=== PATIENT | female | born 1960 | race American Indian/Alaskan Native ===

== ENCOUNTER 2018-04-30 16:03 | Inpatient (IN) | payer MEDICAID ==
[2018-04-30] MEDS ORDERED: NACL 0.9% 1000 ML 1,000 ML ONE (16:54)
[2018-04-30] MEDS ORDERED: NACL 0.9% 1000 ML 1,000 ML IV ONE (17:03)
--- NOTE | 2018-04-30 17:07 | Emergency Department Report ---
HPI - General Chief Complaint: Urogenital-Female Time Seen by Provider: 04/30/18 16:56 - HPI HPI: Room 25 The patient is 57-year-old female presenting with a chief complaint of vaginal bleeding. Per EMS the [facility] was [facility] secondary to heavy vaginal bleeding for one week. The patient is a hdez of the [facility]. Patient is nonverbal and is unable to provide further history. The patient is a hdez of the [facility] and her weekend guardian is Mr. Alex ([phone]) Location: [See above] Duration: One week Quality: Vaginal bleeding Severity: Heavy Modifying factors: [see above] Context: [see above] Mode of transportation: [not driving] ED Past Medical Hx - Past Medical History Previous Medical History?: Yes Hx CVA: Yes Hx Diabetes: Yes (Type II) Hx Deep Vein Thrombosis: Yes Hx Liver Disease: (Hepatitis) Additional medical history: dysphagia, anemia, trach - Surgical History Past Surgical History?: Yes Additional Surgical History: gastrostomy, tracheostomy - Family History Family history: no significant - Social History Smoking Status: Unknown if ever smoked ED Review of Systems ROS: Stated complaint: VAGINAL CLOTS Other details as noted in HPI Comment: Unobtainable due to pts medical conditions Physical Exam - Physical Exam Vital Signs: Vital Signs 04/30/18 16:41 Temperature 98.5 F Pulse Rate 111 H Blood Pressure 93/46 O2 Sat by Pulse 100 Oximetry Physical Exam: GENERAL: The patient is well-developed well-nourished female resting on the stretcher nonverbal, not appearing to be in acute distress. [] HEENT: Normocephalic. Atraumatic. NECK: Trachea midline CHEST/LUNGS: Clear to auscultation. There is no respiratory distress noted. HEART/CARDIOVASCULAR: Regular. There is tachycardia. There is no gallop rub or murmur. ABDOMEN: Abdomen is soft, nontender. Patient has normal bowel sounds. There is no abdominal distention. SKIN: There is no rash. There is no diaphoresis. NEURO: The patient is asleep and nonverbal. Patient occasionally opens eyes and makes eye contact MUSCULOSKELETAL: There is no evidence of acute injury. PELVIC: No blood in the vaginal vault RECTAL: Maroon-colored blood and stool. Guaiac positive ED Course Vital Signs 04/30/18 16:41 Temperature 98.5 F Pulse Rate 111 H Blood Pressure 93/46 O2 Sat by Pulse 100 Oximetry - Consultations Consultation #1: 04/30/18 18:17 Patient's we can guardian Mr. Alex called ([phone])- updated on patient' s condition and lab results. I discussed with him my recognition for blood transfusion. Mr. Alex gives consent for the patient to be transfused blood. He asked to be kept updated for any potential procedures for authorization; however, he stipulates if it is necessary on an emergency basis we may proceed prior to discussing with him 04/30/18 18:17 [place] requested to page GI 04/30/18 18:[address] Scott- states if the patient's vital signs remain stable may hold off on tagged RBC scan, however this patient becomes unstable recommends performing one tonight. Recommends initiate GoLYTELY bowel prep with 4 L of GoLYTELY starting now and finishing by 03:00 ED Medical Decision Making - Lab Data Result diagrams: 04/30/18 17:04 04/30/18 17:04 - Differential Diagnosis uterine cancer, cervical cancer, GI bleed Critical care attestation.: If time is entered above; I have spent that time in minutes in the direct care of this critically ill patient, excluding procedure time. ED Disposition Clinical Impression: GI bleed, Symptomatic anemia Disposition: OP ADMIT IP TO THIS HOSP Is pt being admited?: Yes Does the pt Need Aspirin: No Condition: Serious Time of Disposition: 18:37 (Hospitalist notified (Dr Anderson))
[2018-04-30 17:27] LABS: Hematocrit 21.2 % (30.3-42.9); Mean Corpuscular HGB Conc 33 % (30-34); Mean Corpuscular Hemoglobin 31 pg (28-32); Mean Corpuscular Volume 95 fl (79-97); Platelet Count 208 K/mm3 (140-440); Red Blood Count 2.24 M/mm3 (3.65-5.03); Red Cell Distribution Width 16.5 % (13.2-15.2)
[2018-04-30 17:35] LABS: INR 1.27 (0.87-1.13)
[2018-04-30 17:47] LABS: Albumin 2.7 g/dL (3.9-5); Calcium 8.8 mg/dL (8.4-10.2)
[2018-04-30] MEDS ORDERED: NACL 0.9% 500 ML 500 ML IV ONE ×2 (18:16→20:57)
[2018-04-30 18:30] LABS: Basophils % (Manual) 0 % (0.0-1.8); Total Cells Counted 100
[2018-04-30 18:31] LABS: Hypochromasia 2+; Platelet Estimate Consistent w Auto
[2018-04-30] MEDS ORDERED: GOLYTELY NGTUBE ONE (18:32)
[2018-04-30] MEDS ORDERED: FLUSH HEPARIN IV ONE (19:42)
--- NOTE | 2018-04-30 19:52 | History and Physical Report ---
History of Present Illness Date of examination: 04/30/18 Date of admission: 04/30/2018 Chief complaint: Chief complaint Lower GI bleed History of present illness: GILES 57-year-old female snf resident sent in for lower GI bleed. As per the snf it was vaginal bleeding but in the emergency room after the physical exam it was found to be rectal bleeding rather than vaginal bleeding. Also fever and chills Past Medical History Previous Medical History?: Yes Hx CVA: Yes Hx Diabetes: Yes (Type II) Hx Deep Vein Thrombosis: Yes Hx Liver Disease: (Hepatitis) Additional medical history: dysphagia, anemia, trach Surgical History Past Surgical History?: Yes Additional Surgical History: gastrostomy, tracheostomy - Family History Family history: no significant - Social History Smoking Status: Unknown if ever smoked Review of Systems ROS: Lower GI bleed Fever and chills Other details as noted in HPI Comment: Unobtainable due to pts medical conditions Medications and Allergies Allergies Allergy/AdvReac Type Severity Reaction Status Date / Time No Known Allergies Allergy Unverified 04/30/18 17:06 Home Medications Medication Instructions Recorded Confirmed Last Taken Type Acetaminophen [Acetaminophen ORAL 20 ml FEEDTUBE Q6H PRN 04/30/18 04/30/18 Unknown History LIQ] Aspirin [Aspir-Low] 81 mg FEEDTUBE QDAY 04/30/18 04/30/18 Unknown History Atorvastatin Calcium [Lipitor] 40 mg FEEDTUBE QHS 04/30/18 04/30/18 Unknown History Cholecalciferol (Vitamin D3) 5,000 unit FEEDTUBE QWEEK 04/30/18 04/30/18 Unknown History [Vitamin D3] Diphenoxylate HCl/Atropine 1 each PO Q6H PRN 04/30/18 04/30/18 Unknown History [Lomotil 2.5-0.025 mg Tablet] Enoxaparin Sodium 40 mg SQ QDAY 04/30/18 04/30/18 Unknown History Glucagon,Human Recombinant 1 mg IJ Q15M PRN 04/30/18 04/30/18 Unknown History [Glucagon Emergency Kit] Insulin Detemir [Levemir] 12 unit SQ BID 04/30/18 04/30/18 Unknown History Ipratropium/Albuterol Sulfate 1 ampul IH Q6HR PRN 04/30/18 04/30/18 Unknown History [DUONEB *Not for PRN Use*] Lispro Insulin [Humalog] 12 unit SQ QDAY 04/30/18 04/30/18 Unknown History Metformin HCl 500 mg FEEDTUBE BID 04/30/18 04/30/18 Unknown History Nystatin Oint [Mycostatin Oint] 1 applicatio TP BID PRN 04/30/18 04/30/18 Unknown History Ranitidine HCl [Acid Licensed Certified Orthotist] 150 mg FEEDTUBE BID 04/30/18 04/30/18 Unknown History Scopolamine [Transderm-Scop] 1 each TD Q3D 04/30/18 04/30/18 Unknown History Valproic Acid (As Sodium Salt) 10 ml FEEDTUBE BID 04/30/18 04/30/18 Unknown History [Depakene] levETIRAcetam [Keppra TAB] 1,000 mg FEEDTUBE BID 04/30/18 04/30/18 Unknown History Active Meds: Active Medications Pantoprazole Sodium 80 mg/ (Sodium Chloride) 100 mls @ 10 mls/hr IV DIRECT RONALDO Exam - Physical Exam Narrative exam: Lying in bed comfortably - Constitutional Vitals: Temp Pulse Resp BP Pulse Ox 98.5 F 92 H 18 105/64 93 04/30/18 16:41 04/30/18 18:00 04/30/18 18:00 04/30/18 18:00 04/30/18 18:00 General appearance: Present: no acute distress, well-nourished - EENT Eyes: Present: PERRL ENT: hearing intact, clear oral mucosa - Neck Neck: Present: supple, normal ROM - Respiratory Respiratory effort: normal Respiratory: bilateral: CTA - Cardiovascular Heart rate: 70 Rhythm: regular Heart Sounds: Present: S1 & S2. Absent: rub, click - Extremities Extremities: no ischemia, pulses intact, pulses symmetrical, No edema Extremity abnormal: other (contractures both feet) Peripheral Pulses: within normal limits - Abdominal General gastrointestinal: Present: soft, non-tender, non-distended, normal bowel sounds Female genitourinary: Present: normal - Rectal Rectal Exam: deferred - Integumentary Integumentary: Present: clear, warm, dry - Musculoskeletal Musculoskeletal: generalized weakness - Psychiatric Psychiatric: intact judgment & insight, depressed - Neurologic Neurologic: CNII-XII intact, moves all extremities Results - Labs CBC & Chem 7: 04/30/18 21:53 04/30/18 17:04 Labs: Laboratory Last Values WBC 12.9 K/mm3 (4.5-11.0) H 04/30/18 17:04 RBC 2.24 M/mm3 (3.65-5.03) L 04/30/18 17:04 Hgb 7.0 gm/dl (10.1-14.3) L 04/30/18 17:04 Hct 21.2 % (30.3-42.9) L 04/30/18 17:04 MCV 95 fl (79-97) 04/30/18 17:04 MCH 31 pg (28-32) 04/30/18 17:04 MCHC 33 % (30-34) 04/30/18 17:04 RDW 16.5 % (13.2-15.2) H 04/30/18 17:04 Plt Count 208 K/mm3 (140-440) 04/30/18 17:04 Lymph # Bilingual Trainer 04/30/18 17:04 Add Manual Diff Complete 04/30/18 17:04 Total Counted 100 04/30/18 17:04 Seg Neuts % (Manual) 44.0 % (40.0-70.0) 04/30/18 17:04 Band Neutrophils % 0 % 04/30/18 17:04 Lymphocytes % (Manual) 48.0 % (13.4-35.0) H 04/30/18 17:04 Reactive Lymphs % (Man) 2.0 % 04/30/18 17:04 Monocytes % (Manual) 5.0 % (0.0-7.3) 04/30/18 17:04 Eosinophils % (Manual) 1.0 % (0.0-4.3) 04/30/18 17:04 Basophils % (Manual) 0 % (0.0-1.8) 04/30/18 17:04 Metamyelocytes % 0 % 04/30/18 17:04 Myelocytes % 0 % 04/30/18 17:04 Promyelocytes % 0 % 04/30/18 17:04 Blast Cells % 0 % 04/30/18 17:04 Nucleated RBC % Not Reportable 04/30/18 17:04 Seg Neutrophils # Man 5.7 K/mm3 (1.8-7.7) 04/30/18 17:04 Band Neutrophils # 0.0 K/mm3 04/30/18 17:04 Lymphocytes # (Manual) 6.2 K/mm3 (1.2-5.4) H 04/30/18 17:04 Abs React Lymphs (Man) 0.3 K/mm3 04/30/18 17:04 Monocytes # (Manual) 0.6 K/mm3 (0.0-0.8) 04/30/18 17:04 Eosinophils # (Manual) 0.1 K/mm3 (0.0-0.4) 04/30/18 17:04 Basophils # (Manual) 0.0 K/mm3 (0.0-0.1) 04/30/18 17:04 Metamyelocytes # 0.0 K/mm3 04/30/18 17:04 Myelocytes # 0.0 K/mm3 04/30/18 17:04 Promyelocytes # 0.0 K/mm3 04/30/18 17:04 Blast Cells # 0.0 K/mm3 04/30/18 17:04 WBC Morphology Not Reportable 04/30/18 17:04 Hypersegmented Neuts Not Reportable 04/30/18 17:04 Hyposegmented Neuts Not Reportable 04/30/18 17:04 Hypogranular Neuts Not Reportable 04/30/18 17:04 Smudge Cells Not Reportable 04/30/18 17:04 Toxic Granulation Not Reportable 04/30/18 17:04 Toxic Vacuolation Not Reportable 04/30/18 17:04 Dohle Bodies Not Reportable 04/30/18 17:04 Pelger-Huet Anomaly Not Reportable 04/30/18 17:04 Kanchan Rods Not Reportable 04/30/18 17:04 Platelet Estimate Consistent w auto 04/30/18 17:04 Clumped Platelets Not Reportable 04/30/18 17:04 Plt Clumps, EDTA Not Reportable 04/30/18 17:04 Large Platelets Not Reportable 04/30/18 17:04 Giant Platelets Not Reportable 04/30/18 17:04 Platelet Satelliting Not Reportable 04/30/18 17:04 Plt Morphology Comment Not Reportable 04/30/18 17:04 RBC Morphology Not Reportable 04/30/18 17:04 Dimorphic RBCs Not Reportable 04/30/18 17:04 Polychromasia Not Reportable 04/30/18 17:04 Hypochromasia 2+ 04/30/18 17:04 Poikilocytosis Not Reportable 04/30/18 17:04 Anisocytosis Not Reportable 04/30/18 17:04 Microcytosis Not Reportable 04/30/18 17:04 Macrocytosis Not Reportable 04/30/18 17:04 Spherocytes Not Reportable 04/30/18 17:04 Pappenheimer Bodies Not Reportable 04/30/18 17:04 Sickle Cells Not Reportable 04/30/18 17:04 Target Cells Not Reportable 04/30/18 17:04 Tear Drop Cells Not Reportable 04/30/18 17:04 Ovalocytes Not Reportable 04/30/18 17:04 Helmet Cells Not Reportable 04/30/18 17:04 Li-[place]apstone Bodies Not Reportable 04/30/18 17:04 [place] Rings Not Reportable 04/30/18 17:04 Effie Cells Not Reportable 04/30/18 17:04 Bite Cells Not Reportable 04/30/18 17:04 Crenated Cell Not Reportable 04/30/18 17:04 Elliptocytes Not Reportable 04/30/18 17:04 Acanthocytes (Spur) Not Reportable 04/30/18 17:04 Rouleaux Not Reportable 04/30/18 17:04 Hemoglobin C Crystals Not Reportable 04/30/18 17:04 Schistocytes Not Reportable 04/30/18 17:04 Malaria parasites Not Reportable 04/30/18 17:04 Franklyn Bodies Not Reportable 04/30/18 17:04 Hem Pathologist Commnt No 04/30/18 17:04 PT 16.6 Sec. (12.2-14.9) H 04/30/18 17:04 INR 1.27 (0.87-1.13) H 04/30/18 17:04 APTT 50.0 Sec. (24.2-36.6) H 04/30/18 17:04 Sodium 136 mmol/L (137-145) L 04/30/18 17:04 Potassium 5.2 mmol/L (3.6-5.0) H 04/30/18 17:04 Chloride 99.7 mmol/L (98-107) 04/30/18 17:04 Carbon Dioxide 20 mmol/L (22-30) L 04/30/18 17:04 Anion Gap 22 mmol/L 04/30/18 17:04 BUN 37 mg/dL (7-17) H 04/30/18 17:04 Creatinine 1.2 mg/dL (0.7-1.2) 04/30/18 17:04 Estimated GFR 46 ml/min 04/30/18 17:04 BUN/Creatinine Ratio 31 % 04/30/18 17:04 Glucose 193 mg/dL (65-100) H 04/30/18 17:04 Calcium 8.8 mg/dL (8.4-10.2) 04/30/18 17:04 Total Bilirubin 0.50 mg/dL (0.1-1.2) 04/30/18 17:04 AST 58 units/L (5-40) H 04/30/18 17:04 ALT 31 units/L (7-56) 04/30/18 17:04 Alkaline Phosphatase 54 units/L (35-129) 04/30/18 17:04 Total Protein 9.0 g/dL (6.3-8.2) H 04/30/18 17:04 Albumin 2.7 g/dL (3.9-5) L 04/30/18 17:04 Albumin/Globulin Ratio 0.4 % 04/30/18 17:04 Blood Type O POSITIVE 04/30/18 17:04 Antibody Screen Negative 04/30/18 17:04 Crossmatch See Detail 04/30/18 17:04 - Imaging and Cardiology EKG: report reviewed Assessment and Plan Advance Directives: Yes (hospice) VTE prophylaxis?: Chemical Plan of care discussed with patient/family: Yes - Patient Problems (1) Lower GI bleed Current Visit: Yes Status: Acute Plan to address problem: Transfuse 1 unit Of packed red blood cells GI consult Possible diverticulosis Protonix initiated (2) Acute blood loss anemia Current Visit: Yes Status: Acute Plan to address problem: Transfuse 1 unit of packed red blood cells (3) Type 2 diabetes mellitus Current Visit: Yes Status: Chronic Qualifiers: Diabetes mellitus custodial insulin use: unspecified lobsterman insulin use status Plan to address problem: Coverage for now (4) History of cerebrovascular accident Current Visit: Yes Status: Chronic Plan to address problem: Supportive care (5) Fever Current Visit: Yes Status: Acute Qualifiers: Encounter type: initial encounter Plan to address problem: Urine analysis is ordered Not yet available IV Rocephin started empirically (6) DVT prophylaxis Current Visit: Yes Status: Acute Plan to address problem: On heparin
[2018-04-30] MEDS ORDERED: PERCOCET 5/325 PO PRN (19:53)
[2018-04-30] MEDS ORDERED: TYLENOL PO PRN (19:53)
[2018-04-30] MEDS ORDERED: ZOFRAN IV PRN (19:53)
[2018-04-30] MEDS ORDERED: MORPHINE IV PRN (19:53)
[2018-04-30] MEDS ORDERED: SODIUM CHLORIDE FLUSH SYRINGE 10 ML IV PRN (19:53)
[2018-04-30] MEDS ORDERED: PROTONIX 80 MG in NACL 0.9% 100 ML IV SCH (20:00)
[2018-04-30] MEDS ORDERED: D5NS 1,000 ML IV SCH (20:00)
[2018-04-30] MEDS ORDERED: PEPCID IV SCH (22:00)
[2018-04-30] MEDS ORDERED: cefTRIAXone 2 GM in NACL 0.9% 20 ML IV SCH (22:00)
--- NOTE | 2018-04-30 22:01 | Nuclear Medicine Report ---
FINAL REPORT EXAM: NM GI BLEEDING SCAN HISTORY: gi bleed TECHNIQUE: Nuclear medicine GI bleeding scan performed using approximately 20 mCi of technetium 99m tagged RBCs. Planar images of the abdomen obtained for approximately one hour. PRIORS: None. FINDINGS: Normal, physiologic radionuclide activity noted throughout the abdomen. No apparent, ectopic or migratory radionuclide activity seen within the bowel. IMPRESSION: 1. No acute findings.
[2018-04-30] MEDS: SENOKOT PO SCH (22:05)
[2018-04-30 22:27] LABS: Hematocrit 23.2 % (30.3-42.9); Hemoglobin 7.8 gm/dl (10.1-14.3)
[2018-04-30] MEDS: SODIUM CHLORIDE FLUSH SYRINGE 10 ML IV SCH (23:36)
[2018-05-01 06:53] LABS: Bilirubin,Urine NEG (Negative); Blood,Urine LG (Negative); Color,Urine Amber (Yellow); Urobilinogen,Urine < 2.0 mg/dL (<2.0)
[2018-05-01 06:54] LABS: WBC,Urine > 182.0 /HPF (0.0-6.0)
[2018-05-01] MEDS ORDERED: NACL 0.9% 1000 ML 1,000 ML ONE (07:04)
[2018-05-01] MEDS ORDERED: WATER FOR IRRIG STERILE IR ONE (07:05)
[2018-05-01] MEDS ORDERED: WATER FOR IRRIG STERILE ONE (07:05)
[2018-05-01] MEDS ORDERED: DIPRIVAN 10 MG/ML IV ONE ×2 (07:51)
--- NOTE | 2018-05-01 07:52 | Gastroenterology Consultation ---
History of Present Illness - Reason for Consult Consult date: 05/01/18 GI bleed Requesting physician: SAMI ORTIZ - History of Present Illness Ms Mckinley is a 57 yo aaf who [facility] from [facility] with [facility] bleed. Patient non-verbal and history gathered from chart review and discussion with staff. Patient with chronic trach and peg tube. She has a legal guardian who gives consent for patient. She presented with what was initially felt to be vaginal bleeding but was found to have dark/maroon stool per rectum on exam. She was initially hypotensive/tachycardic on arrival which improved with IVF's. She was found to have severe anemia on admission with unknown baseline. She received a unit of blood with appropriate response in H/H. She had a tagged RBC scan following admission which was negative for active bleeding. Past History Past Medical History: other (non verbal, ?h/o cva) Past Surgical History: Other (+ trach and peg tube) Social history: other (unable to obtain) Family history: other (unable to obtain) Medications and Allergies Allergies Allergy/AdvReac Type Severity Reaction Status Date / Time No Known Allergies Allergy Unverified 04/30/18 17:06 Home Medications Medication Instructions Recorded Confirmed Last Taken Type Acetaminophen [Acetaminophen ORAL 20 ml FEEDTUBE Q6H PRN 04/30/18 04/30/18 Unknown History LIQ] Aspirin [Aspir-Low] 81 mg FEEDTUBE QDAY 04/30/18 04/30/18 Unknown History Atorvastatin Calcium [Lipitor] 40 mg FEEDTUBE QHS 04/30/18 04/30/18 Unknown History Cholecalciferol (Vitamin D3) 5,000 unit FEEDTUBE QWEEK 04/30/18 04/30/18 Unknown History [Vitamin D3] Diphenoxylate HCl/Atropine 1 each PO Q6H PRN 04/30/18 04/30/18 Unknown History [Lomotil 2.5-0.025 mg Tablet] Enoxaparin Sodium 40 mg SQ QDAY 04/30/18 04/30/18 Unknown History Glucagon,Human Recombinant 1 mg IJ Q15M PRN 04/30/18 04/30/18 Unknown History [Glucagon Emergency Kit] Insulin Detemir [Levemir] 12 unit SQ BID 04/30/18 04/30/18 Unknown History Ipratropium/Albuterol Sulfate 1 ampul IH Q6HR PRN 04/30/18 04/30/18 Unknown History [DUONEB *Not for PRN Use*] Lispro Insulin [Humalog] 12 unit SQ QDAY 04/30/18 04/30/18 Unknown History Metformin HCl 500 mg FEEDTUBE BID 04/30/18 04/30/18 Unknown History Nystatin Oint [Mycostatin Oint] 1 applicatio TP BID PRN 04/30/18 04/30/18 Unknown History Ranitidine HCl [Acid [facility]] 150 mg FEEDTUBE BID 04/30/18 04/30/18 Unknown History Scopolamine [Transderm-Scop] 1 each TD Q3D 04/30/18 04/30/18 Unknown History Valproic Acid (As Sodium Salt) 10 ml FEEDTUBE BID 04/30/18 04/30/18 Unknown History [Depakene] levETIRAcetam [Keppra TAB] 1,000 mg FEEDTUBE BID 04/30/18 04/30/18 Unknown History Active Meds: Active Medications Acetaminophen (Tylenol) 650 mg PO Q4H PRN PRN Reason: Pain MILD(1-3)/Fever >100.5/GAMBINO Pantoprazole Sodium 80 mg/ (Sodium Chloride) 100 mls @ 10 mls/hr IV DIRECT [facility] Last Admin: 05/01/18 01:00 Dose: 8 mg/hr, 10 mls/hr Dextrose/Sodium Chloride (D5ns) 1,000 mls @ 75 mls/hr IV DIRECT [facility] Last Admin: 04/30/18 23:38 Dose: 75 mls/hr Ceftriaxone Sodium 2 gm/ (Sodium Chloride) 20 mls @ 2 mls/min IV Q24HR@2200 [facility] Last Admin: 04/30/18 23:35 Dose: 2 mls/min Morphine Sulfate (Morphine) 2 mg IV Q4H PRN PRN Reason: Pain, Moderate (4-6) Ondansetron HCl (Zofran) 4 mg IV Q8H PRN PRN Reason: Nausea And Vomiting Oxycodone/Acetaminophen (Percocet 5/325) 1 tab PO Q6H PRN PRN Reason: Pain, Moderate (4-6) Senna (Senokot) 8.6 mg PO Q12HR [facility] Last Admin: 04/30/18 22:05 Dose: 8.6 mg Sodium Chloride (Sodium Chloride Flush Syringe 10 Ml) 10 ml IV BID [facility] Last Admin: 04/30/18 23:36 Dose: 10 ml Sodium Chloride (Sodium Chloride Flush Syringe 10 Ml) 10 ml IV PRN PRN PRN Reason: LINE FLUSH Review of Systems - Review of Systems ROS unobtainable: due to mental status Exam - Constitutional Vital Signs: Temp Pulse Resp BP Pulse Ox 97.8 F 77 18 120/72 98 05/01/18 04:30 05/01/18 04:30 05/01/18 04:30 05/01/18 04:30 05/01/18 04:30 General appearance: no acute distress, other (non verbal) - Neck Neck: other (+ trach) - Respiratory Respiratory effort: normal Respiratory: bilateral: diminished - Cardiovascular Rhythm: regular Heart Sounds: Present: S1 & S2 - Gastrointestinal General gastrointestinal: Present: soft, non-tender, non-distended, other (+ peg tube) - Integumentary Integumentary: Present: clear, warm - Neurologic Neurological: other (orientec x 0) - Labs CBC & Chem 7: 04/30/18 21:53 04/30/18 17:04 Lab Results: Laboratory Results - last 24 hr 04/30/18 04/30/18 04/30/18 06:10 17:04 17:04 WBC 12.9 H RBC 2.24 L Hgb 7.0 L Hct 21.2 L MCV 95 MCH 31 MCHC 33 RDW 16.5 H Plt Count 208 Lymph # Stable Manager Add Manual Diff Complete Total Counted 100 Seg Neuts % (Manual) 44.0 Band Neutrophils % 0 Lymphocytes % (Manual) 48.0 H Reactive Lymphs % (Man) 2.0 Monocytes % (Manual) 5.0 Eosinophils % (Manual) 1.0 Basophils % (Manual) 0 Metamyelocytes % 0 Myelocytes % 0 Promyelocytes % 0 Blast Cells % 0 Nucleated RBC % Not Reportable Seg Neutrophils # Man 5.7 Band Neutrophils # 0.0 Lymphocytes # (Manual) 6.2 H Abs React Lymphs (Man) 0.3 Monocytes # (Manual) 0.6 Eosinophils # (Manual) 0.1 Basophils # (Manual) 0.0 Metamyelocytes # 0.0 Myelocytes # 0.0 Promyelocytes # 0.0 Blast Cells # 0.0 WBC Morphology Not Reportable Hypersegmented Neuts Not Reportable Hyposegmented Neuts Not Reportable Hypogranular Neuts Not Reportable Smudge Cells Not Reportable Toxic Granulation Not Reportable Toxic Vacuolation Not Reportable Dohle Bodies Not Reportable Pelger-Huet Anomaly Not Reportable Kanchan Rods Not Reportable Platelet Estimate Consistent w auto Clumped Platelets Not Reportable Plt Clumps, EDTA Not Reportable Large Platelets Not Reportable Giant Platelets Not Reportable Platelet Satelliting Not Reportable Plt Morphology Comment Not Reportable RBC Morphology Not Reportable Dimorphic RBCs Not Reportable Polychromasia Not Reportable Hypochromasia 2+ Poikilocytosis Not Reportable Anisocytosis Not Reportable Microcytosis Not Reportable Macrocytosis Not Reportable Spherocytes Not Reportable Pappenheimer Bodies Not Reportable Sickle Cells Not Reportable Target Cells Not Reportable Tear Drop Cells Not Reportable Ovalocytes Not Reportable Helmet Cells Not Reportable [place] Bodies Not Reportable Jacobson Rings Not Reportable Anita Cells Not Reportable Bite Cells Not Reportable Crenated Cell Not Reportable Elliptocytes Not Reportable Acanthocytes (Spur) Not Reportable Rouleaux Not Reportable Hemoglobin C Crystals Not Reportable Schistocytes Not Reportable Malaria parasites Not Reportable Franklyn Bodies Not Reportable Hem Pathologist Commnt No PT 16.6 H INR 1.27 H APTT 50.0 H Sodium Potassium Chloride Carbon Dioxide Anion Gap BUN Creatinine Estimated GFR BUN/Creatinine Ratio Glucose POC Glucose Calcium Total Bilirubin AST ALT Alkaline Phosphatase Total Protein Albumin Albumin/Globulin Ratio Urine Color Josy Urine Turbidity Clear Urine pH 5.0 Ur Specific Wing 1.018 Urine Protein 30 mg/dl Urine Glucose (UA) Neg Urine Ketones Tr Urine Blood Lg Urine Nitrite Neg Urine Bilirubin Neg Urine Urobilinogen < 2.0 Ur Leukocyte Esterase Lg Urine WBC (Auto) > 182.0 H Urine RBC (Auto) 42.0 U Epithel Cells (Auto) 1.0 Urine WBC Clumps 3+ Blood Type Antibody Screen Crossmatch 04/30/18 04/30/18 04/30/18 17:04 17:04 21:53 WBC RBC Hgb 7.8 L Hct 23.2 L MCV MCH MCHC RDW Plt Count Lymph # Add Manual Diff Total Counted Seg Neuts % (Manual) Band Neutrophils % Lymphocytes % (Manual) Reactive Lymphs % (Man) Monocytes % (Manual) Eosinophils % (Manual) Basophils % (Manual) Metamyelocytes % Myelocytes % Promyelocytes % Blast Cells % Nucleated RBC % Seg Neutrophils # Man Band Neutrophils # Lymphocytes # (Manual) Abs React Lymphs (Man) Monocytes # (Manual) Eosinophils # (Manual) Basophils # (Manual) Metamyelocytes # Myelocytes # Promyelocytes # Blast Cells # WBC Morphology Hypersegmented Neuts Hyposegmented Neuts Hypogranular Neuts Smudge Cells Toxic Granulation Toxic Vacuolation Dohle Bodies Pelger-Huet Anomaly Kanchan Rods Platelet Estimate Clumped Platelets Plt Clumps, EDTA Large Platelets Giant Platelets Platelet Satelliting Plt Morphology Comment RBC Morphology Dimorphic RBCs Polychromasia Hypochromasia Poikilocytosis Anisocytosis Microcytosis Macrocytosis Spherocytes Pappenheimer Bodies Sickle Cells Target Cells Tear Drop Cells Ovalocytes Helmet Cells Li-[place] Bodies Jacobson Rings Effie Cells Bite Cells Crenated Cell Elliptocytes Acanthocytes (Spur) Rouleaux Hemoglobin C Crystals Schistocytes Malaria parasites Franklyn Bodies Hem Pathologist Commnt PT INR APTT Sodium 136 L Potassium 5.2 H Chloride 99.7 Carbon Dioxide 20 L Anion Gap 22 BUN 37 H Creatinine 1.2 Estimated GFR 46 BUN/Creatinine Ratio 31 Glucose 193 H POC Glucose Calcium 8.8 Total Bilirubin 0.50 AST 58 H ALT 31 Alkaline Phosphatase 54 Total Protein 9.0 H Albumin 2.7 L Albumin/Globulin Ratio 0.4 Urine Color Urine Turbidity Urine pH Ur Specific Wing Urine Protein Urine Glucose (UA) Urine Ketones Urine Blood Urine Nitrite Urine Bilirubin Urine Urobilinogen Ur Leukocyte Esterase Urine WBC (Auto) Urine RBC (Auto) U Epithel Cells (Auto) Urine WBC Clumps Blood Type O POSITIVE Antibody Screen Negative Crossmatch See Detail 04/30/18 05/01/18 23:09 05:57 WBC RBC Hgb Hct MCV MCH MCHC RDW Plt Count Lymph # Add Manual Diff Total Counted Seg Neuts % (Manual) Band Neutrophils % Lymphocytes % (Manual) Reactive Lymphs % (Man) Monocytes % (Manual) Eosinophils % (Manual) Basophils % (Manual) Metamyelocytes % Myelocytes % Promyelocytes % Blast Cells % Nucleated RBC % Seg Neutrophils # Man Band Neutrophils # Lymphocytes # (Manual) Abs React Lymphs (Man) Monocytes # (Manual) Eosinophils # (Manual) Basophils # (Manual) Metamyelocytes # Myelocytes # Promyelocytes # Blast Cells # WBC Morphology Hypersegmented Neuts Hyposegmented Neuts Hypogranular Neuts Smudge Cells Toxic Granulation Toxic Vacuolation Dohle Bodies Pelger-Huet Anomaly Kanchan Rods Platelet Estimate Clumped Platelets Plt Clumps, EDTA Large Platelets Giant Platelets Platelet Satelliting Plt Morphology Comment RBC Morphology Dimorphic RBCs Polychromasia Hypochromasia Poikilocytosis Anisocytosis Microcytosis Macrocytosis Spherocytes Pappenheimer Bodies Sickle Cells Target Cells Tear Drop Cells Ovalocytes Helmet Cells [place] Bodies Jacobson Rings Effie Cells Bite Cells Crenated Cell Elliptocytes Acanthocytes (Spur) Rouleaux Hemoglobin C Crystals Schistocytes Malaria parasites Franklyn Bodies Hem Pathologist Commnt PT INR APTT Sodium Potassium Chloride Carbon Dioxide Anion Gap BUN Creatinine Estimated GFR BUN/Creatinine Ratio Glucose POC Glucose 179 H 118 H Calcium Total Bilirubin AST ALT Alkaline Phosphatase Total Protein Albumin Albumin/Globulin Ratio Urine Color Urine Turbidity Urine pH Ur Specific Wing Urine Protein Urine Glucose (UA) Urine Ketones Urine Blood Urine Nitrite Urine Bilirubin Urine Urobilinogen Ur Leukocyte Esterase Urine WBC (Auto) Urine RBC (Auto) U Epithel Cells (Auto) Urine WBC Clumps Blood Type Antibody Screen Crossmatch - Imaging Bleeding Scan: report reviewed Assessment and Plan 1. GI bleed 2. h/o CVA 3. Anemia 4. ANTOLIN -vitals stable, will plan for egd/colonoscopy. further management based on findings
--- NOTE | 2018-05-01 08:41 | Post Operative Note ---
Pre-op diagnosis: GI bleed Post-op diagnosis: same (diverticulosis, scattered erythematous colon mucosa, internal hemorrhoids; gastritis) Findings: Colonoscopy: scattered/patchy erythematous mucosa throughout colon, biopsied. diverticulosis, internal hemorrhoids. no blood seen in the colon EGD: mild gastritis, internal bumper of peg tube, no source of bleeding identified. Procedure: 1. Colonoscopy with biopsies 2. EGD Anesthesia: MAC Surgeon: PRATIK LEE Estimated blood loss: minimal Pathology: list (Jar A - colon biopsies) Specimen disposition: to lab Condition: stable Disposition: floor
--- NOTE | 2018-05-01 08:46 | Operative Report ---
Operative Report Operative Report: Colonoscopy Procedure Note with Biopsies Date of procedure: 05/01/2018 Endoscopist: Jaylen Scott Pre-op diagnosis: GI bleed Post-op diagnosis: diverticulosis, mild patchy erythematous mucosa, internal hemorrhoids Anesthesia: MAC Complications: No immediate complications Estimated blood loss: minimal Procedure: After consent was obtained from the patient's guardian over the phone (Liyah Romo, ), the patient was placed in the left lateral decubitus position. The fujinon colonoscope was inserted into the patient's rectum under direct vision, and advanced to the cecum without difficulty. The patient tolerated the procedure well. The views of the mucosa were good. The quality of prep was good. The patient's vital signs were monitored continuously throughout the procedure. Findings: There were multiple scattered diverticula throughout the colon. There were patchy areas of erythematous mucosa throughout the colon of unclear significance. Biopsies were obtained. Internal hemorrhoids were visualized on retroflexion view. There was no blood seen throughout the colon during the procedure Impression: 1. Diverticulosis 2. Patchy erythematous mucosa of unclear significance (? colitis vs prep- artifact vs ischemia although less likely given pattern). Biopsies obtained. 3. Internal hemorrhoids Recommendations: -follow-up pathology -endoscopy to follow
--- NOTE | 2018-05-01 08:49 | Operative Report ---
Operative Report Operative Report: Esophagogastroduodenoscopy Procedure Note Date of procedure: 05/01/2018 Endoscopist: Jaylen Scott Pre-op diagnosis: GI bleed Post-op diagnosis: mild gastritis, otherwise no significant findings Anesthesia: MAC Complications: No immediate complications Estimated blood loss: none Procedure: After consent was obtained from the patient's legal guardian ( details in colonoscopy report), the patient was placed in the left lateral decubitus position. The fujinon endoscope was inserted into the patient's mouth under direct vision, and advanced to the 2nd portion of duodenum without difficulty. The patient tolerated the procedure well. The views of the mucosa were good. Patient's vital signs were monitored continuously throughout the procedure. Findings: There was a non-obstructing, widely patent B ring in the lower third of the esophagus. There was mild erythematous mucosa in the gastric body. The internal bumper of peg tube was visualized without abnormalities. Otherwise, the stomach appeared normal. The duodenum appeared normal. Bile was seen throughout the visualized portion of the duodenum. Impression: 1. Mild gastritis otherwise unremarkable EGD. No high risk bleeding lesions or source of bleeding identified during procedure. Recommendations: -okay to restart tube feeds per nutrition recommendations -trend H/H -if no further bleeding, okay to be discharged from GI stand point (source of bleeding likely diverticular vs hemorrhoids, difficult to say given unknown baseline for patient's H/H). regardless, there was no blood seen during the procedures or signs of active/recent bleeding.
--- NOTE | 2018-05-01 09:29 | Anesthesia Consultation ---
Anesthesia Consult and Med Hx Date of service: 05/01/18 - Airway Anesthetic Teeth Evaluation: Poor (multiple missing, brittle), Chipped Mental/Hyoid Distance: Adequate Mallampati Class: Class III Intubation Access Assessment: Possibly Difficult - Pulmonary Exam CTA: Yes - Cardiac Exam Cardiac Exam: RRR - Pre-Operative Health Status ASA Pre-Surgery Classification: ASA4 Proposed Anesthetic Plan: MAC - Pre-Anesthesia Comment Pre-Anesthesia Comments: Trach, eyes open. right arm/leg flaccid. moves left hand, squeezes. unable to follow purposeful commands - Pulmonary Hx Respiratory Symptoms: Yes (Trach airway ) - Central Nervous System CVA: Yes - Endocrine Hx Liver Disease: Yes (HEPATITIS) Hx Non-Insulin Dependent Diabetes: Yes - Hematic Hx Anemia: Yes
[2018-05-01 09:30] VITALS: BP 131/82
--- NOTE | 2018-05-01 09:31 | Anesthesia Day of Surgery ---
Anesthesia Day of Surgery - Day of Surgery Patient Examined: Yes Patient H&P Reviewed: Yes Patient is NPO: Yes
[2018-05-01] MEDS ORDERED: NACL 0.9% 1000 ML 1,000 ML IV SCH (10:00)
[2018-05-01 10:46] LABS: Basophils % (Auto) 0.5 % (0.0-1.8); Eosinophils # (Auto) 0.1 K/mm3 (0.0-0.4); Hemoglobin 8.7 gm/dl (10.1-14.3); Lymphocytes # (Auto) 3.4 K/mm3 (1.2-5.4); Mean Corpuscular HGB Conc 33 % (30-34); Mean Corpuscular Hemoglobin 30 pg (28-32); Mean Corpuscular Volume 90 fl (79-97); Monocytes # (Auto) 0.5 K/mm3 (0.0-0.8); Platelet Count 107 K/mm3 (140-440); Red Blood Count 2.89 M/mm3 (3.65-5.03)
--- NOTE | 2018-05-01 11:06 | Post Anesthesia Evaluation ---
- Post Anesthesia Evaluation Patient Participated: Yes Airway Patent: Yes Stable Respiratory Function: Yes Nausea/Vomiting: No Temp > 96.8F: Yes Pain Manageable: Yes Adequeate Hydration: Yes Anesthesia Complications: No
[2018-05-01 11:07] LABS: Albumin 2.6 g/dL (3.9-5); Calcium 8.3 mg/dL (8.4-10.2)
[2018-05-01] MEDS ORDERED: HumaLOG SUB-Q SCH (11:30)
--- NOTE | 2018-05-01 11:35 | Discharge Summary ---
<MARY ANN SINGLETON - Last Filed: 05/01/18 12:11> Providers - Providers Date of Admission: 04/30/18 19:53 Date of discharge: 05/01/18 Attending physician: SCOTT BUSTOS MD 04/30/18 19:53 Consult to Physician [CONS] Routine Comment: Consulting Provider: PRATIK LEE Physician Instructions: Reason For Exam: gi bLEED 05/01/18 10:15 Consult to Dietitian/Nutrition [CONS] Routine Physician Instructions: Reason For Exam: Reason for Consult: Write/Manage Tube Feeding Primary care physician: OFFSHORE DIVER Hospitalization Condition: Stable Hospital course: Patient nonverbal, HPI obtained from admitting physician's H&P 57-year-old female assisted resident sent in for lower GI bleed. As per the assisted it was vaginal bleeding but in the emergency room after the physical exam it was found to be rectal bleeding rather than vaginal bleeding. Also fever and chills. Patient was transfused with 1 unit of PRBC, Protonix was initiated and Osteopathic Resident was consulted. Patient underwent EGD and was found to have mild gastritis and otherwise unremarkable EGD. Patient was okay to be discharge from GI standpoint as there was no further bleeding. Patient is clinically and hemodynamically stable for discharge back to SNF. Discharge diagnoses Lower GI bleed Acute blood loss anemia Type 2 diabetes History of CVA Fever Gastritis Disposition: DC/TX-03 SNF [facility] Time spent for discharge: 32 minutes Core Measure Documentation - Palliative Care Palliative Care/ Comfort Measures: Not Applicable - Core Measures Any of the following diagnoses?: none Exam - Physical Exam Narrative exam: General appearance: Present: no acute distress, well-nourished - EENT Eyes: Present: PERRL ENT: hearing intact, clear oral mucosa - Neck Neck: Present: supple, normal ROM, tracheostomy - Respiratory Respiratory effort: normal Respiratory: bilateral: CTA - Cardiovascular Rhythm: regular Heart Sounds: Present: S1 & S2. Absent: rub, click - Extremities Extremities: no ischemia, pulses intact, pulses symmetrical, No edema Extremity abnormal: other (contractures both feet) Peripheral Pulses: within normal limits - Abdominal General gastrointestinal: Present: soft, non-tender, non-distended, normal bowel sounds Female genitourinary: Present: normal - Rectal Rectal Exam: deferred - Integumentary Integumentary: Present: clear, warm, dry - Musculoskeletal Musculoskeletal: generalized weakness - Psychiatric Psychiatric: intact judgment & insight, depressed - Neurologic Neurologic: CNII-XII intact, moves all extremities - Constitutional Vitals: Temp Pulse Resp BP Pulse Ox 97.4 F L 75 12 131/82 100 05/01/18 07:30 05/01/18 09:04 05/01/18 09:04 05/01/18 09:04 05/01/18 09:04 Plan Follow up with: PRIMARY CAREMD [Primary Care Provider] - 7 Days Prescriptions: Ferrous Sulfate 300 mg FEEDTUBE QDAY #30 oralsyr <SCOTT BUSTOS - Last Filed: 05/01/18 17:19> Providers - Providers Date of Admission: 04/30/18 19:53 Attending physician: SCOTT BUSTOS MD 04/30/18 19:53 Consult to Physician [CONS] Routine Comment: Consulting Provider: PRATIK LEE Physician Instructions: Reason For Exam: gi bLEED 05/01/18 10:15 Consult to Dietitian/Nutrition [CONS] Routine Physician Instructions: Reason For Exam: Reason for Consult: Write/Manage Tube Feeding Primary care physician: OFFSHORE DIVER Hospitalization Reason for admission: GI bleeding Pertinent studies: EGD/Colonoscopy Hospital course: There is mild hypernatremia and will be corrected with tube feeding. - Discharge Diagnoses (1) Acute blood loss anemia Status: Acute (2) GI bleed Status: Acute (3) Lower GI bleed Status: Acute (4) History of cerebrovascular accident Status: Chronic (5) Type 2 diabetes mellitus Status: Chronic Qualifiers: Diabetes mellitus measurement department chief clerk insulin use: unspecified measurement department chief clerk insulin use status Core Measure Documentation - Palliative Care Palliative Care/ Comfort Measures: Not Applicable - Core Measures Any of the following diagnoses?: history only (CVA) Exam - Physical Exam Narrative exam: Patient is bed-ridden and immobile. Patient is non communicative but understood simple commands. - Constitutional Vitals: Temp Pulse Resp BP Pulse Ox 97.4 F L 75 12 131/82 100 05/01/18 07:30 05/01/18 09:04 05/01/18 09:04 05/01/18 09:04 05/01/18 09:04 Plan Activity: other (bed ridden) Weight Bearing Status: Non-Weight Bearing Diet: diabetic, per dietitian instruction
[2018-05-01] MEDS: SENOKOT PO SCH (11:47)
[2018-05-01] MEDS: SODIUM CHLORIDE FLUSH SYRINGE 10 ML IV SCH (11:47)
[2018-05-01] MEDS ORDERED: D5/0.45NS 1,000 ML IV SCH (12:00)
[2018-05-01] MEDS ORDERED: SODIUM BICARBONATE FEEDTUBE PRN (13:12)
[2018-05-01] MEDS ORDERED: PANCREAZE DR 10,500 UNIT FEEDTUBE PRN (13:12)
[2018-05-01] MEDS ORDERED: SIMPLE SYRUP FEEDTUBE PRN ×2 (13:12)
--- NOTE | 2018-05-01 16:55 | Query- Nutrition ---
Lani Ovalles____Kulwinder Date:__05/01/18 Web Press Operator/CDS:__abeba Phone#:___[phone] Exercise your independent professional judgment when responding to query. Questions asked do not imply a particular answer is desired or expected. We greatly appreciate your clarification on this issue. Clinical Documentation States: 57-year-old female halfway resident sent in for lower GI bleed. As per the halfway it was vaginal bleeding but in the emergency room after the physical exam it was found to be rectal bleeding rather than vaginal bleeding. Also fever and chills. Taken from discharge summary () on 04/30/18. Discharge diagnoses Lower GI bleed Acute blood loss anemia Type 2 diabetes History of CVA Fever Gastritis Clinical Findings Show: 04/30/18 05/01/18 Albumin 2.7 L 2.6 L Please select the most appropriate option 3 [] Mild Malnutrition [] Mild - Moderate Malnutrition [x] Moderate - Severe Malnutrition [] Severe Malnutrition Serum Albumin 2.8 to 3.4 g/dl or Pre-albumin 5 to 17 mg/dl1,2 Inadequate nutritional intake1,2,3,4 NPO > 5 days Weight loss: 5% in 1 month or 7.5% in 3 months or 10% in 6 months1, 3,4 BMI 16 to 18.4 or Weight <90% of ideal body weight1,2,3,4 Serum Albumin < 2.8 g/ dl1,2 Lymphocytes < 1500/ L2 Inadequate nutritional intake3, high stress e.g. major trauma, sepsis,pancreatitis, taylor etc. Decubitus ulcers1,2, , skin breakdown2, easy hair pluckability2 Weight <80% standard for height2 Triceps skin fold <3 mm2 Mid-arm muscle circumference <15 cm2 Creatinine-height index <60% standard2 [ ] Cachexia [ ] Emaciated w/Malnutrition [ ] Other: [ ] Unable to determine [ ] Comment/Explanation: Present on Admission: [ x] Yes (Y) [ ] Clinically undeterminable (W) [ ] No (N) Please also document response in your Progress Notes and/or Discharge Summary and indicate if the condition was present on admission. MTDD
[2018-05-01] MEDS ORDERED: PROTONIX FEEDTUBE SCH (22:00)
== END 2018-05-01 14:45 | disposition home or self-care (01) | DRG 393 ==
LOC: ED 16:03 → 3A 19:53
PROVIDERS: ADMIT Internal Medicine; ATTEND Internal Medicine
PROC: 0DBE8ZX Excision of Large Intestine, Via Natural or Artificial Opening Endoscopic, Diagnostic (ICD-10-PCS; principal; 2018-05-01)
PROC: 0DJ08ZZ Inspection of Upper Intestinal Tract, Via Natural or Artificial Opening Endoscopic (ICD-10-PCS; 2018-05-01)
PROC: 30233N1 Transfusion of Nonautologous Red Blood Cells into Peripheral Vein, Percutaneous Approach (ICD-10-PCS; 2018-05-01)
DX: K64.8 Other hemorrhoids (principal); E43 Unspecified severe protein-calorie malnutrition; K29.71 Gastritis, unspecified, with bleeding; K57.91 Diverticulosis of intestine, part unspecified, without perforation or abscess with bleeding; D62 Acute posthemorrhagic anemia; E11.9 Type 2 diabetes mellitus without complications; N17.9 Acute kidney failure, unspecified; Z68.25 Body mass index [BMI] 25.0-25.9, adult; Z86.73 Personal history of transient ischemic attack (TIA), and cerebral infarction without residual deficits; Z79.82 Long term (current) use of aspirin; Z79.899 Other long term (current) drug therapy; Z86.718 Personal history of other venous thrombosis and embolism; Z93.1 Gastrostomy status; Z93.0 Tracheostomy status
CPT/HCPCS: 36415; 78278; 80053; 81001; 82271; 82962; 85007; 85014; 85018; 85025; 85610; 85730; 86850; 86900; 86901; 86920; 87086; 88305; 94760; 96360; A9560; C9113; J0696; J1642; J1815; J2704; J7030; J7040; J7042; P9016

== ENCOUNTER 2018-05-03 02:49 | Emergency (ER) | payer MEDICAID ==
--- NOTE | 2018-05-03 04:03 | Emergency Department Report ---
ED General Adult HPI - General Chief complaint: Tube Replacement Stated complaint: TRACH FELL OUT Time Seen by Provider: 05/03/18 03:53 Source: EMS (ems notes not available at time of chart dictation), RN notes reviewed, old records reviewed Mode of arrival: Stretcher Limitations: Physical Limitation, Other (patient nonverbal) - History of Present Illness Initial comments: This is a 57-year-old female, unknown to this provider, history of stroke, feeding tube, tracheostomy, gastritis, diabetes. Brought to the hospital by local EMS after her tracheostomy fell out. Patient indicates no pain. Palate her trach size is [place]er 6. In the emergency room, an uncuffed 4 [place]er tracheostomy tube was placed by respiratory therapy with the symptoms. No other complaints were noted. Patient recently mince the hospital had an extensive medical workup performed for various things, including acute febrile illness and possible GI bleed. -: Sudden Consistency: now resolved Improves with: other Worsens with: none Associated Symptoms: denies other symptoms - Related Data Home Medications Medication Instructions Recorded Confirmed Last Taken Acetaminophen [Acetaminophen ORAL 20 ml FEEDTUBE Q6H PRN 04/30/18 04/30/18 Unknown LIQ] Aspirin [Aspir-Low] 81 mg FEEDTUBE QDAY 04/30/18 04/30/18 Unknown Atorvastatin Calcium [Lipitor] 40 mg FEEDTUBE QHS 04/30/18 04/30/18 Unknown Cholecalciferol (Vitamin D3) 5,000 unit FEEDTUBE QWEEK 04/30/18 04/30/18 Unknown [Vitamin D3] Diphenoxylate HCl/Atropine 1 each PO Q6H PRN 04/30/18 04/30/18 Unknown [Lomotil 2.5-0.025 mg Tablet] Enoxaparin Sodium 40 mg SQ QDAY 04/30/18 04/30/18 Unknown Glucagon,Human Recombinant 1 mg IJ Q15M PRN 04/30/18 04/30/18 Unknown [Glucagon Emergency Kit] Insulin Detemir [Levemir VIAL] 12 unit SQ BID 04/30/18 04/30/18 Unknown Ipratropium/Albuterol Sulfate 1 ampul IH Q6HR PRN 04/30/18 04/30/18 Unknown [DUONEB *Not for PRN Use*] Lispro Insulin [Humalog] 12 unit SQ QDAY 04/30/18 04/30/18 Unknown Metformin HCl 500 mg FEEDTUBE BID 04/30/18 04/30/18 Unknown Nystatin Oint [Mycostatin Oint] 1 applicatio TP BID PRN 04/30/18 04/30/18 Unknown Ranitidine HCl [Acid Truck Driver Flatbed] 150 mg FEEDTUBE BID 04/30/18 04/30/18 Unknown Scopolamine [Transderm-Scop] 1 each TD Q3D 04/30/18 04/30/18 Unknown Valproic Acid (As Sodium Salt) 10 ml FEEDTUBE BID 04/30/18 04/30/18 Unknown [Depakene] levETIRAcetam [Keppra TAB] 1,000 mg FEEDTUBE BID 04/30/18 04/30/18 Unknown Previous Rx's Medication Instructions Recorded Last Taken Type Ferrous Sulfate 300 mg FEEDTUBE QDAY #30 oralsyr 05/01/18 Unknown Rx Allergies Allergy/AdvReac Type Severity Reaction Status Date / Time No Known Allergies Allergy Unverified 04/30/18 17:06 ED Review of Systems ROS: Stated complaint: TRACH FELL OUT Other details as noted in HPI Comment: Unobtainable due to pts medical conditions (patient indicates yes no) Constitutional: denies: fever Respiratory: denies: cough Cardiovascular: denies: chest pain Gastrointestinal: denies: abdominal pain Genitourinary: denies: dysuria ED Past Medical Hx - Past Medical History Previous Medical History?: Yes Hx CVA: Yes Hx Congestive Heart Failure: No Hx Diabetes: Yes Hx Deep Vein Thrombosis: Yes Hx Liver Disease: Yes (HEPATITIS) Hx Asthma: No Hx COPD: No Additional medical history: dysphagia, anemia, trach - Surgical History Past Surgical History?: Yes Additional Surgical History: gastrostomy, tracheostomy - Social History Smoking Status: Never Smoker - Medications Home Medications: Home Medications Medication Instructions Recorded Confirmed Last Taken Type Acetaminophen [Acetaminophen ORAL 20 ml FEEDTUBE Q6H PRN 04/30/18 04/30/18 Unknown History LIQ] Aspirin [Aspir-Low] 81 mg FEEDTUBE QDAY 04/30/18 04/30/18 Unknown History Atorvastatin Calcium [Lipitor] 40 mg FEEDTUBE QHS 04/30/18 04/30/18 Unknown History Cholecalciferol (Vitamin D3) 5,000 unit FEEDTUBE QWEEK 04/30/18 04/30/18 Unknown History [Vitamin D3] Diphenoxylate HCl/Atropine 1 each PO Q6H PRN 04/30/18 04/30/18 Unknown History [Lomotil 2.5-0.025 mg Tablet] Enoxaparin Sodium 40 mg SQ QDAY 04/30/18 04/30/18 Unknown History Glucagon,Human Recombinant 1 mg IJ Q15M PRN 04/30/18 04/30/18 Unknown History [Glucagon Emergency Kit] Insulin Detemir [Levemir VIAL] 12 unit SQ BID 04/30/18 04/30/18 Unknown History Ipratropium/Albuterol Sulfate 1 ampul IH Q6HR PRN 04/30/18 04/30/18 Unknown History [DUONEB *Not for PRN Use*] Lispro Insulin [Humalog] 12 unit SQ QDAY 04/30/18 04/30/18 Unknown History Metformin HCl 500 mg FEEDTUBE BID 04/30/18 04/30/18 Unknown History Nystatin Oint [Mycostatin Oint] 1 applicatio TP BID PRN 04/30/18 04/30/18 Unknown History Ranitidine HCl [Acid Truck Driver Flatbed] 150 mg FEEDTUBE BID 04/30/18 04/30/18 Unknown History Scopolamine [Transderm-Scop] 1 each TD Q3D 04/30/18 04/30/18 Unknown History Valproic Acid (As Sodium Salt) 10 ml FEEDTUBE BID 04/30/18 04/30/18 Unknown History [Depakene] levETIRAcetam [Keppra TAB] 1,000 mg FEEDTUBE BID 04/30/18 04/30/18 Unknown History Ferrous Sulfate 300 mg FEEDTUBE QDAY #30 oralsyr 05/01/18 Unknown Rx ED Physical Exam - General Limitations: Physical Limitation General appearance: alert, in no apparent distress - Head Head exam: Present: atraumatic, normocephalic - Eye Eye exam: Present: normal appearance, EOMI - ENT ENT exam: Present: normal orophraynx, mucous membranes moist - Neck Neck exam: Present: normal inspection, full ROM, other (a 4 [place]er tracheostomy tube is noted in the neck, with no redness, pus or streaking). Absent: tenderness, meningismus - Respiratory Respiratory exam: Present: normal lung sounds bilaterally. Absent: respiratory distress, wheezes, rales, rhonchi, stridor, chest wall tenderness, accessory muscle use, decreased breath sounds, prolonged expiratory - Cardiovascular Cardiovascular Exam: Present: regular rate, normal rhythm, normal heart sounds. Absent: bradycardia, tachycardia, irregular rhythm, systolic murmur, diastolic murmur, rubs, gallop - GI/Abdominal GI/Abdominal exam: Present: soft, normal bowel sounds. Absent: distended, tenderness, guarding, rebound, rigid, pulsatile mass - Rectal Rectal exam: Present: normal inspection - Extremities Exam Extremities exam: Present: normal inspection, joint swelling. Absent: calf tenderness - Back Exam Back exam: Present: normal inspection. Absent: paraspinal tenderness - Neurological Exam Neurological exam: Present: alert, motor sensory deficit (weakness in the right upper extremity, right lower extremity. Patient able to nod yes/ no to questions) - Psychiatric Psychiatric exam: Present: normal affect, normal mood - Skin Skin exam: Present: warm, dry, intact, normal color. Absent: rash ED Course Vital Signs 05/03/18 05/03/18 03:42 06:41 Temperature 97.6 F Pulse Rate 97 H 85 Respiratory 18 17 Rate Blood Pressure 121/68 111/67 [Left] O2 Sat by Pulse 99 Oximetry - Reevaluation(s) Reevaluation #1: 05/03/18 06:44 Resting heart rate currently at 85 bpm. ED Medical Decision Making - Medical Decision Making Differential diagnosis, including but not limited to: Tracheostomy tube displacement Assessment and plan: 57-year-old female with accidental tracheostomy tube displacement that was replaced by respiratory therapy. She has no complaints at this time, her physical exam is at baseline when compared to prior documentation, and she is saturating well on a trach collar. She can follow up with outpatient ENT or pulmonary for further management. No indication for laboratory studies or urinalysis, the patient recently had extensive laboratory studies performed within the past week. Critical care attestation.: If time is entered above; I have spent that time in minutes in the direct care of this critically ill patient, excluding procedure time. ED Disposition Clinical Impression: Unspecified tracheostomy complication Disposition: DC/TX-70 ANOTHER TYPE HLTHCARE Is pt being admited?: No Does the pt Need Aspirin: No Condition: Stable Instructions: Tracheostomy Care (ED), Tracheotomy (ED) Additional Instructions: Continue current outpatient medications. Follow-up with pulmonary doctor or otolaryngology specialist within the next week for definitive management of the tracheostomy collar. Return to the ER right away with fevers, chills, lethargy , irritability, projectile vomiting, change in mental status, confusion, inability to tolerate liquids Referrals: PRIMARY CARE, [Primary Care Provider] - 3-5 Days ALEX OWENS MD [Staff Physician] - 3-5 Days LETTY MELGAR MD [Staff Physician] - 3-5 Days MALKA CORNEJO MD [Staff Physician] - 3-5 Days THEA BRUNNER MD [Staff Physician] - 3-5 Days
[2018-05-03 06:41] VITALS: BP 111/67
== END 2018-05-03 08:03 | disposition other institution (70) ==
LOC: ED 02:49
DX: J95.03 Malfunction of tracheostomy stoma (principal); E11.9 Type 2 diabetes mellitus without complications; Z86.718 Personal history of other venous thrombosis and embolism; Z86.73 Personal history of transient ischemic attack (TIA), and cerebral infarction without residual deficits; Y83.8 Other surgical procedures as the cause of abnormal reaction of the patient, or of later complication, without mention of misadventure at the time of the procedure; Y92.89 Other specified places as the place of occurrence of the external cause
CPT/HCPCS: 99283

== ENCOUNTER 2018-05-08 12:58 | Emergency (ER) | payer MEDICAID ==
--- NOTE | 2018-05-08 17:26 | Emergency Department Report ---
ED General Adult HPI - General Chief complaint: Tube Replacement Stated complaint: PULLED TRACK TUBE OUT Time Seen by Provider: 05/08/18 17:26 Source: EMS Mode of arrival: Stretcher Limitations: Physical Limitation - History of Present Illness Initial comments: Patient was transferred to the halfway after she put out her tracheostomy tube. Patient is nonverbal and could not give any medical history. -: Sudden Severity scale (0 -10): 0 - Related Data Home Medications Medication Instructions Recorded Confirmed Last Taken Acetaminophen [Acetaminophen ORAL 20 ml FEEDTUBE Q6H PRN 04/30/18 04/30/18 Unknown LIQ] Aspirin [Aspir-Low] 81 mg FEEDTUBE QDAY 04/30/18 04/30/18 Unknown Atorvastatin Calcium [Lipitor] 40 mg FEEDTUBE QHS 04/30/18 04/30/18 Unknown Cholecalciferol (Vitamin D3) 5,000 unit FEEDTUBE QWEEK 04/30/18 04/30/18 Unknown [Vitamin D3] Diphenoxylate HCl/Atropine 1 each PO Q6H PRN 04/30/18 04/30/18 Unknown [Lomotil 2.5-0.025 mg Tablet] Enoxaparin Sodium 40 mg SQ QDAY 04/30/18 04/30/18 Unknown Glucagon,Human Recombinant 1 mg IJ Q15M PRN 04/30/18 04/30/18 Unknown [Glucagon Emergency Kit] Insulin Detemir [Levemir VIAL] 12 unit SQ BID 04/30/18 04/30/18 Unknown Ipratropium/Albuterol Sulfate 1 ampul IH Q6HR PRN 04/30/18 04/30/18 Unknown [DUONEB *Not for PRN Use*] Lispro Insulin [Humalog] 12 unit SQ QDAY 04/30/18 04/30/18 Unknown Metformin HCl 500 mg FEEDTUBE BID 04/30/18 04/30/18 Unknown Nystatin Oint [Mycostatin Oint] 1 applicatio TP BID PRN 04/30/18 04/30/18 Unknown Ranitidine HCl [Acid Document Management Consultant] 150 mg FEEDTUBE BID 04/30/18 04/30/18 Unknown Scopolamine [Transderm-Scop] 1 each TD Q3D 04/30/18 04/30/18 Unknown Valproic Acid (As Sodium Salt) 10 ml FEEDTUBE BID 04/30/18 04/30/18 Unknown [Depakene] levETIRAcetam [Keppra TAB] 1,000 mg FEEDTUBE BID 04/30/18 04/30/18 Unknown Previous Rx's Medication Instructions Recorded Last Taken Type Ferrous Sulfate 300 mg FEEDTUBE QDAY #30 oralsyr 05/01/18 Unknown Rx Allergies Allergy/AdvReac Type Severity Reaction Status Date / Time No Known Allergies Allergy Unverified 04/30/18 17:06 ED Review of Systems ROS: Stated complaint: PULLED TRACK TUBE OUT Other details as noted in HPI Comment: Unobtainable due to pts medical conditions (patient is nonverbal.) ED Past Medical Hx - Past Medical History Hx CVA: Yes Hx Congestive Heart Failure: No Hx Diabetes: Yes Hx Deep Vein Thrombosis: Yes Hx Liver Disease: Yes (HEPATITIS) Hx Asthma: No Hx COPD: No Additional medical history: dysphagia, anemia, trach - Surgical History Additional Surgical History: gastrostomy, tracheostomy - Social History Smoking Status: Never Smoker - Medications Home Medications: Home Medications Medication Instructions Recorded Confirmed Last Taken Type Acetaminophen [Acetaminophen ORAL 20 ml FEEDTUBE Q6H PRN 04/30/18 04/30/18 Unknown History LIQ] Aspirin [Aspir-Low] 81 mg FEEDTUBE QDAY 04/30/18 04/30/18 Unknown History Atorvastatin Calcium [Lipitor] 40 mg FEEDTUBE QHS 04/30/18 04/30/18 Unknown History Cholecalciferol (Vitamin D3) 5,000 unit FEEDTUBE QWEEK 04/30/18 04/30/18 Unknown History [Vitamin D3] Diphenoxylate HCl/Atropine 1 each PO Q6H PRN 04/30/18 04/30/18 Unknown History [Lomotil 2.5-0.025 mg Tablet] Enoxaparin Sodium 40 mg SQ QDAY 04/30/18 04/30/18 Unknown History Glucagon,Human Recombinant 1 mg IJ Q15M PRN 04/30/18 04/30/18 Unknown History [Glucagon Emergency Kit] Insulin Detemir [Levemir VIAL] 12 unit SQ BID 04/30/18 04/30/18 Unknown History Ipratropium/Albuterol Sulfate 1 ampul IH Q6HR PRN 04/30/18 04/30/18 Unknown History [DUONEB *Not for PRN Use*] Lispro Insulin [Humalog] 12 unit SQ QDAY 04/30/18 04/30/18 Unknown History Metformin HCl 500 mg FEEDTUBE BID 04/30/18 04/30/18 Unknown History Nystatin Oint [Mycostatin Oint] 1 applicatio TP BID PRN 04/30/18 04/30/18 Unknown History Ranitidine HCl [Acid Document Management Consultant] 150 mg FEEDTUBE BID 04/30/18 04/30/18 Unknown History Scopolamine [Transderm-Scop] 1 each TD Q3D 04/30/18 04/30/18 Unknown History Valproic Acid (As Sodium Salt) 10 ml FEEDTUBE BID 04/30/18 04/30/18 Unknown History [Depakene] levETIRAcetam [Keppra TAB] 1,000 mg FEEDTUBE BID 04/30/18 04/30/18 Unknown History Ferrous Sulfate 300 mg FEEDTUBE QDAY #30 oralsyr 05/01/18 Unknown Rx ED Physical Exam - General Limitations: Physical Limitation (aphasic.) General appearance: alert, in no apparent distress - Head Head exam: Present: other (surgical scar to discomfort.) - Eye Eye exam: Present: normal appearance - ENT ENT exam: Present: other (tracheostomy scar on the anterior neck with a stoma almost closed.) - Neck Neck exam: Present: full ROM - Respiratory Respiratory exam: Present: normal lung sounds bilaterally. Absent: respiratory distress, wheezes, stridor - Cardiovascular Cardiovascular Exam: Present: regular rate, normal heart sounds - GI/Abdominal GI/Abdominal exam: Present: soft, normal bowel sounds. Absent: tenderness, guarding, rebound - Extremities Exam Extremities exam: Present: normal inspection, normal capillary refill - Back Exam Back exam: Present: normal inspection - Neurological Exam Neurological exam: Present: alert - Psychiatric Psychiatric exam: Present: flat affect - Skin Skin exam: Present: warm, dry, intact, normal color ED Course Vital Signs 05/08/18 05/08/18 05/08/18 13:15 15:54 16:00 Temperature 98.9 F 98.4 F Pulse Rate 77 67 68 Respiratory 18 13 12 Rate Blood Pressure 112/73 Blood Pressure 131/70 [Right] O2 Sat by Pulse 100 100 100 Oximetry 05/08/18 05/08/18 16:01 18:45 Temperature Pulse Rate 103 H Respiratory 12 12 Rate Blood Pressure Blood Pressure 141/71 [Right] O2 Sat by Pulse 100 100 Oximetry - Reevaluation(s) Reevaluation #1: 05/08/18 21:37 I consulted the ENT surgeon at [facility] Dr Linda Carlson. She accepted patient for transfer to the emergency room for further evaluation. ED Medical Decision Making - Medical Decision Making Dislodged tracheostomy tube. Critical care attestation.: If time is entered above; I have spent that time in minutes in the direct care of this critically ill patient, excluding procedure time. ED Disposition Clinical Impression: Complication of tracheostomy tube Unspecified tracheostomy complication Qualifiers: Tracheostomy complication: unspecified Qualified Code(s): J95.00 - Unspecified tracheostomy complication Disposition: DC[facility]- [facility] IP Is pt being admited?: No Does the pt Need Aspirin: No Condition: Stable Referrals: PRIMARY CARE, [Primary Care Provider] - 3-5 Days Time of Disposition: 21:40
[2018-05-08 23:28] VITALS: BP 133/68
== END 2018-05-08 23:29 | disposition short-term general hospital (02) ==
LOC: ED 12:58
DX: J95.00 Unspecified tracheostomy complication (principal); E11.9 Type 2 diabetes mellitus without complications; K75.9 Inflammatory liver disease, unspecified; Z79.82 Long term (current) use of aspirin; Z79.4 Long term (current) use of insulin; Z86.718 Personal history of other venous thrombosis and embolism
CPT/HCPCS: 99282

== ENCOUNTER 2018-06-08 11:29 | Emergency (ER) | payer MEDICAID ==
--- NOTE | 2018-06-08 13:15 | Emergency Department Report ---
ED General Adult HPI - General Chief complaint: Medical Clearance Stated complaint: TRACH REPLACEMENT Time Seen by Provider: 06/08/18 12:51 Source: patient, EMS Mode of arrival: Stretcher Limitations: Other - History of Present Illness Initial comments: This is a 57-year-old female, history of stroke, feeding tube, tracheostomy, gastritis, diabetes was brought from [facility] after she accidentally pulled out her trach. [facility] is called and they are not sure when she pulled out the trach. She is under no respiratory distress. she is relaxing in bed. no distress Onset/Timin -: days(s) Location: chest (unable to obtain secondary to pt being non verbal secondary to stroke) - Related Data Home Medications Medication Instructions Recorded Confirmed Last Taken Acetaminophen [Acetaminophen ORAL 20 ml FEEDTUBE Q6H PRN 04/30/18 04/30/18 Unknown LIQ] Aspirin [Aspir-Low] 81 mg FEEDTUBE QDAY 04/30/18 04/30/18 Unknown Atorvastatin Calcium [Lipitor] 40 mg FEEDTUBE QHS 04/30/18 04/30/18 Unknown Cholecalciferol (Vitamin D3) 5,000 unit FEEDTUBE QWEEK 04/30/18 04/30/18 Unknown [Vitamin D3] Diphenoxylate HCl/Atropine 1 each PO Q6H PRN 04/30/18 04/30/18 Unknown [Lomotil 2.5-0.025 mg Tablet] Enoxaparin Sodium 40 mg SQ QDAY 04/30/18 04/30/18 Unknown Glucagon,Human Recombinant 1 mg IJ Q15M PRN 04/30/18 04/30/18 Unknown [Glucagon Emergency Kit] Insulin Detemir [Levemir VIAL] 12 unit SQ BID 04/30/18 04/30/18 Unknown Ipratropium/Albuterol Sulfate 1 ampul IH Q6HR PRN 04/30/18 04/30/18 Unknown [DUONEB *Not for PRN Use*] Lispro Insulin [Humalog] 12 unit SQ QDAY 04/30/18 04/30/18 Unknown Metformin HCl 500 mg FEEDTUBE BID 04/30/18 04/30/18 Unknown Nystatin Oint [Mycostatin Oint] 1 applicatio TP BID PRN 04/30/18 04/30/18 Unknown Ranitidine HCl [Acid Emery Grinder] 150 mg FEEDTUBE BID 04/30/18 04/30/18 Unknown Scopolamine [Transderm-Scop] 1 each TD Q3D 04/30/18 04/30/18 Unknown Valproic Acid (As Sodium Salt) 10 ml FEEDTUBE BID 04/30/18 04/30/18 Unknown [Depakene] levETIRAcetam [Keppra TAB] 1,000 mg FEEDTUBE BID 04/30/18 04/30/18 Unknown Previous Rx's Medication Instructions Recorded Last Taken Type Ferrous Sulfate 300 mg FEEDTUBE QDAY #30 oralsyr 05/01/18 Unknown Rx Allergies Allergy/AdvReac Type Severity Reaction Status Date / Time No Known Allergies Allergy Unverified 04/30/18 17:06 ED Review of Systems ROS: Stated complaint: TRACH REPLACEMENT Other details as noted in HPI unable to obtain secondary to pt being non verbal ED Past Medical Hx - Past Medical History Previous Medical History?: Yes Hx CVA: Yes Hx Congestive Heart Failure: No Hx Diabetes: Yes Hx Deep Vein Thrombosis: Yes Hx Liver Disease: Yes (HEPATITIS) Hx Asthma: No Hx COPD: No Additional medical history: dysphagia, anemia, trach - Surgical History Additional Surgical History: gastrostomy, tracheostomy - Social History Smoking Status: Unknown if ever smoked Substance Use Type: None - Medications Home Medications: Home Medications Medication Instructions Recorded Confirmed Last Taken Type Acetaminophen [Acetaminophen ORAL 20 ml FEEDTUBE Q6H PRN 04/30/18 04/30/18 Unknown History LIQ] Aspirin [Aspir-Low] 81 mg FEEDTUBE QDAY 04/30/18 04/30/18 Unknown History Atorvastatin Calcium [Lipitor] 40 mg FEEDTUBE QHS 04/30/18 04/30/18 Unknown History Cholecalciferol (Vitamin D3) 5,000 unit FEEDTUBE QWEEK 04/30/18 04/30/18 Unknown History [Vitamin D3] Diphenoxylate HCl/Atropine 1 each PO Q6H PRN 04/30/18 04/30/18 Unknown History [Lomotil 2.5-0.025 mg Tablet] Enoxaparin Sodium 40 mg SQ QDAY 04/30/18 04/30/18 Unknown History Glucagon,Human Recombinant 1 mg IJ Q15M PRN 04/30/18 04/30/18 Unknown History [Glucagon Emergency Kit] Insulin Detemir [Levemir VIAL] 12 unit SQ BID 04/30/18 04/30/18 Unknown History Ipratropium/Albuterol Sulfate 1 ampul IH Q6HR PRN 04/30/18 04/30/18 Unknown History [DUONEB *Not for PRN Use*] Lispro Insulin [Humalog] 12 unit SQ QDAY 04/30/18 04/30/18 Unknown History Metformin HCl 500 mg FEEDTUBE BID 04/30/18 04/30/18 Unknown History Nystatin Oint [Mycostatin Oint] 1 applicatio TP BID PRN 04/30/18 04/30/18 Unknown History Ranitidine HCl [Acid Emery Grinder] 150 mg FEEDTUBE BID 04/30/18 04/30/18 Unknown History Scopolamine [Transderm-Scop] 1 each TD Q3D 04/30/18 04/30/18 Unknown History Valproic Acid (As Sodium Salt) 10 ml FEEDTUBE BID 04/30/18 04/30/18 Unknown History [Depakene] levETIRAcetam [Keppra TAB] 1,000 mg FEEDTUBE BID 04/30/18 04/30/18 Unknown History Ferrous Sulfate 300 mg FEEDTUBE QDAY #30 oralsyr 05/01/18 Unknown Rx ED Physical Exam - General Limitations: Other General appearance: alert, in no apparent distress - Head Head exam: Present: atraumatic, normocephalic - Eye Eye exam: Present: normal appearance - ENT ENT exam: Present: mucous membranes moist - Neck Neck exam: Present: normal inspection (+ trach opening is closed.) - Respiratory Respiratory exam: Present: normal lung sounds bilaterally. Absent: respiratory distress - Cardiovascular Cardiovascular Exam: Present: regular rate, normal rhythm. Absent: systolic murmur, diastolic murmur, rubs, gallop - GI/Abdominal GI/Abdominal exam: Present: soft, normal bowel sounds - Extremities Exam Extremities exam: Present: normal inspection - Back Exam Back exam: Present: normal inspection - Neurological Exam Neurological exam: Present: alert, oriented X3 (pt is non verbal baseline) - Psychiatric Psychiatric exam: Present: normal affect, normal mood - Skin Skin exam: Present: warm, dry, intact, normal color. Absent: rash ED Course Vital Signs 06/08/18 11:32 Pulse Rate 102 H Respiratory 16 Rate Blood Pressure 154/92 O2 Sat by Pulse 96 Oximetry 57yo male with PMhx of HTN, stroke and is non verbal baseline, PEG tube, trach was sent from [facility] for accidentally trach falling out. Pt is under no acute distress and is saturating 96% on RA Pts trach opening is closed, i called the respiratory therapist and tried but the opening is closed and pt will be transferred. I called [facility] and i spoke with (ENT information systems security manager) and he is accepting the pt and pt will be evaluated for a trach placement. Critical care attestation.: If time is entered above; I have spent that time in minutes in the direct care of this critically ill patient, excluding procedure time. ED Disposition Clinical Impression: Trachea displaced Disposition: DC/TX-70 ANOTHER TYPE HLTHCARE Is pt being admited?: No Condition: Stable Additional Instructions: pt going to [facility] for trach placement Referrals: PRIMARY CARE, [Primary Care Provider] - 3-5 Days
[2018-06-08 14:18] VITALS: BP 148/68
== END 2018-06-08 14:41 | disposition other institution (70) ==
LOC: ED 11:29
DX: J95.09 Other tracheostomy complication (principal); E11.9 Type 2 diabetes mellitus without complications; Z86.73 Personal history of transient ischemic attack (TIA), and cerebral infarction without residual deficits; Z79.82 Long term (current) use of aspirin; Z79.4 Long term (current) use of insulin; Z86.718 Personal history of other venous thrombosis and embolism
CPT/HCPCS: 99284